=== PATIENT | male | born 2005 | race Hispanic/Latino ===

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

== ENCOUNTER 2025-03-16 19:18 | Emergency (ER) | payer OTHER ==
[2025-03-16 19:46] LABS: Absolute Lymphocytes (CBC) 3.2 K/uL (0.7-4.9); Hematocrit 43.3 % (39.6-49.0); Hemoglobin 14.8 g/dL (13.6-17.9); MCH 30.1 pg (27.0-35.0); MCHC 34.2 g/dL (32.0-36.0); MCV 88.0 fL (80-100); MPV 8.2 fL (7.6-11.3); Nucleated RBC Absolute Count 0.0 (0-0); Nucleated Red Blood Cells % 0.0 % (0-0); RBC Red Blood Cell Count 4.92 M/uL (4.33-5.43); White Blood Count 9.70 thou/uL (4.3-10.9)
[2025-03-16 20:04] LABS: ALT/SGPT 98.0 U/L (16-61); AST/SGOT 34.0 U/L (15-37); Albumin 4.2 g/dL (3.4-5.0); Albumin/Globulin Ratio 1.1 (1.1-1.8); Alkaline Phosphatase 68.0 U/L (45-117); Anion Gap 8.6 mEq/L (5.0-15.0); BUN Blood Urea Nitrogen 16.0 mg/dL (7-18); Bilirubin Indirect, Calculated 0.7 mg/dL (0.2-0.8); Globulin 4.0 g/dL (2.3-3.5); Glucose Level 94.0 mg/dL (74-106); Magnesium 2.2 mg/dL (1.6-2.4); Potassium 3.6 mEq/L (3.5-5.1); Troponin High Sensitivity 36.6 pg/mL (<58.9)
--- NOTE | 2025-03-16 20:06 | RAD REPORT ---
EXAM: Chest Single View HISTORY: 19 years Male CHEST PAIN COMPARISON: 08/27/23 FINDINGS: LUNGS/PLEURA: The lungs are clear. No pleural effusions or pneumothorax. No pulmonary edema. CARDIAC/MEDIASTINUM: Stable enlargement. UPPER ABDOMEN: No significant abnormality. BONES: No acute abnormality. LINES/TUBES/OTHER: N/A IMPRESSION: No evidence of acute cardiopulmonary disease.
--- NOTE | 2025-03-16 20:11 | ER ---
Nurse's Notes [facility] Name: Yuan Lopez Age: 19 yrs Sex: Male : 2005 Arrival Date: 03/16/2025 Time: 19:18 Bed 20 Private MD: Diagnosis: Chest pain Presentation: 03/16 19:23 Chief complaint: Patient states: for about two weeks I have been having chest pain in bm8 the morning and then it goes away today it has come and gone come and gone. currently I have no pain. 19:23 Coronavirus screen: At this time, the client does not indicate any symptoms associated bm8 with coronavirus-19. Ebola Screen: Patient negative for fever greater than or equal to 101.5 degrees Fahrenheit, and additional compatible Ebola Virus Disease symptoms Patient denies exposure to infectious person. Patient denies travel to an Ebola-affected area in the 21 days before illness onset. No symptoms or risks identified at this time. Initial Sepsis Screen: Does the patient meet any 2 criteria? No. Patient's initial sepsis screen is negative. Does the patient have a suspected source of infection? No. Patient's initial sepsis screen is negative. Risk Assessment: Do you want to hurt yourself or someone else?. Onset of symptoms was March 02, 2025 at 08:00. 19:23 Method Of Arrival: EMS: [facility] bm8 19:23 Acuity: VENKAT 2 bm8 Triage Assessment: 19:23 General: Appears in no apparent distress. comfortable, Behavior is calm, cooperative, bm8 appropriate for age. Pain: Denies pain. EENT: No deficits noted. No signs and/or symptoms were reported regarding the EENT system. Neuro: No deficits noted. Level of Consciousness is awake, alert, obeys commands, Oriented to person, place, time, situation, Appropriate for age [employer] Front Desk Attendant are equal bilaterally. Cardiovascular: Reports chest pain that comes and goes for two weeks worse in the morning described as pressure when present. pt denies chest pain currently Denies chest pain, Heart tones S1 S2 present Capillary refill < 3 seconds in bilateral fingers Patient's skin is warm and dry. 19:23 Respiratory: Airway is patent Respiratory effort is even, unlabored, Respiratory bm8 pattern is regular, symmetrical, Breath sounds are clear bilaterally. GI: No signs and/or symptoms were reported involving the gastrointestinal system. : No signs and/or symptoms were reported regarding the genitourinary system. Derm: No signs and/or symptoms reported regarding the dermatologic system. Musculoskeletal: No signs and/or symptoms reported regarding the musculoskeletal system. Historical: - Allergies: 19:32 PENICILLINS; bm8 - Home Meds: 19:32 None [Active]; bm8 - PMHx: 19:32 fatty liver; seasonal allergies; bm8 - PSHx: 19:32 Tonsillectomy; bm8 - Immunization history:: Adult Immunizations up to date. - Infectious Disease History:: Denies. - Social history:: Smoking status: Patient reports the use of cigarette tobacco products, denies chronic smoking, but will smoke occasionally, Patient/guardian denies using alcohol, street drugs. Screenin:36 [facility] ED Fall Risk Assessment (Adult) History of falling in the last 3 months, bm8 including since admission No falls in past 3 months (0 pts) Confusion or Disorientation No (0 pts) Intoxicated or Sedated No (0 pts) Impaired Gait No (0 pts) Mobility Assist Device Used No (0 pt) Altered Elimination No (0 pt) Score/Fall Risk Level 0 - 2 = Low Risk Oriented to surroundings, Maintained a safe environment, Educated pt \T\ family on fall prevention, incl call for assistance when getting out of bed, Assessed \T\ reinforced patient's understanding of fall precautions, Hourly rounding (assess needs \T\ fall precautionary measures) done, Used ambulatory aids as needed (educated on \T\ assisted with), Used gait belt as appropriate. Abuse screen: Denies threats or abuse. Nutritional screening: No deficits noted. Tuberculosis screening: No symptoms or risk factors identified. Assessment: 20:17 Reassessment: Patient appears in no apparent distress at this time. No changes from bm8 previously documented assessment. Patient and/or family updated on plan of care and expected duration. Pain level reassessed. Patient is alert, oriented x 3, equal unlabored respirations, skin warm/dry/pink. Patient denies pain at this time. Vital Signs: 19:23 BP 135 / 56; Pulse 86; Resp 17; Temp 97.8; Pulse Ox 100% ; Weight 164.2 kg; Height 5 bm8 ft. 11 in. ; Pain 0/10; 20:17 BP 132 / 65; Pulse 75; Resp 17; Temp 97.8; Pulse Ox 100% ; Pain 0/10; bm8 19:23 Body Mass Index 50.49 (164.20 kg, 180.34 cm) bm8 19:23 Pain Scale: Adult bm8 20:17 Pain Scale: Adult bm8 Meridian Coma Score: 19:36 Eye Response: spontaneous(4). Motor Response: obeys commands(6). Verbal Response: bm8 oriented(5). Total: 15. 20:17 Eye Response: spontaneous(4). Motor Response: obeys commands(6). Verbal Response: bm8 oriented(5). Total: 15. ED Course: 19:23 Patient arrived in ED. kmf 19:23 Arm band placed on right wrist. bm8 19:26 Yeimy Burgess MD is Attending Physician. sp3 19:30 Anselmo Mooney, RN is Primary Nurse. bm8 19:32 Triage completed. bm8 19:36 Patient has correct armband on for positive identification. Bed in low position. Call bm8 light in reach. Side rails up X2. Adult w/ patient. Client placed on continuous cardiac and pulse oximetry monitoring. NIBP monitoring applied. air sampling and monitoring on. Pulse ox on. NIBP on. Door closed. Noise minimized. Warm blanket given. Pillow given. Verbal reassurance given. Head of bed elevated. 19:36 No provider procedures requiring assistance completed. Initial lab(s) drawn, by ED bm8 staff, sent to lab. EKG done, by ED staff. Inserted saline lock: 20 gauge in right antecubital area, using aseptic technique. Blood collected. Flushed with 10 mL NS. Patient maintains SpO2 saturation greater than 95% on room air. Response to oxygen therapy: symptoms improved. 19:48 XRAY Chest (1 view) Sent. bm8 19:53 XRAY Chest (1 view) In Process Unspecified. EDMS 20:10 Fernie Fierro MD is Referral Physician. sp3 20:17 Provided Education on: post er care, stop smoking, exercise to lose weight. bm8 20:17 IV discontinued, intact, bleeding controlled, No redness/swelling at site. Pressure bm8 dressing applied. Administered Medications: No medications were administered Medication: 19:36 VIS not applicable for this client. bm8 Outcome: 20:11 Discharge ordered by . sp3 20:17 Discharged to home ambulatory, with family, bm8 20:17 Condition: stable 20:17 Discharge instructions given to patient, family, Instructed on discharge instructions, follow up and referral plans. no drinking with medication, no driving heavy equipment, medication usage, benefits of quitting smoking, safety practices, Demonstrated understanding of instructions, follow-up care, medications, 20:23 Patient left the ED. bm8 Signatures: Dispatcher [employer] EDYeimy Knight MD MD sp3 Sarai Guadalupe formerly [facility] Anselmo Mooney, RN RN bm8
--- NOTE | 2025-03-16 20:12 | EDPHYS ---
Physician Documentation [facility] Name: Yuan Lopez Age: 19 yrs Sex: Male : 2005 Arrival Date: 03/16/2025 Time: 19:18 Bed 20 Private MD: ED Physician Yeimy Burgess HPI: 03/16 19:31 This 19 yrs old Male presents to ER via Unassigned with complaints of chest sp3 pain. 19:31 19-year-old male with no significant past medical history, obesity, who now presents to [facility] the ED with chief complaint chest pain that has been occurring every morning for the last 2 weeks subsides as a day progresses however over the last 48 hours it has lasted significantly longer. [facility] where they performed an EKG and activated EMS to bring him here. EMS reports early J-point repolarization on their EKG. Patient is no longer in any chest pain. No other workup was done at the urgent care. Patient denies any headache, neck pain, shortness of breath, back pain, abdominal pain, nausea, vomiting, diarrhea, "heartburn", near-syncope, syncope, known sick contacts, travel history, prolonged immobilization, or any other signs or symptoms on ROS at this time.. Historical: - Allergies: 19:32 PENICILLINS; bm8 - Home Meds: 19:32 None [Active]; bm8 - PMHx: 19:32 fatty liver; seasonal allergies; bm8 - PSHx: 19:32 Tonsillectomy; bm8 - Immunization history:: Adult Immunizations up to date. - Infectious Disease History:: Denies. - Social history:: Smoking status: Patient reports the use of cigarette tobacco products, denies chronic smoking, but will smoke occasionally, Patient/guardian denies using alcohol, street drugs. ROS: 19:34 Constitutional: Negative for fever, chills, and weight loss, Eyes: Negative for injury, sp3 pain, redness, and discharge, Neck: Negative for injury, pain, and swelling, Respiratory: Negative for shortness of breath, cough, wheezing, and pleuritic chest pain, Abdomen/GI: Negative for abdominal pain, nausea, vomiting, diarrhea, and constipation, Back: Negative for injury and pain, MS/Extremity: Negative for injury and deformity, Skin: Negative for injury, rash, and discoloration, Neuro: Negative for headache, weakness, numbness, tingling, and seizure, Psych: Negative for depression, anxiety, suicide ideation, homicidal ideation, and hallucinations, Allergy/Immunology: Negative for hives, rash, and allergies, Endocrine: Negative for neck swelling, polydipsia, polyuria, polyphagia, and marked weight changes, Hematologic/Lymphatic: Negative for swollen nodes, abnormal bleeding, and unusual bruising, 19:34 All other systems are negative, Exam: 19:35 Constitutional: This is a well developed, well nourished patient who is awake, alert, sp3 and in no acute distress. Head/Face: Normocephalic, atraumatic. Eyes: Pupils equal round and reactive to light, extra-ocular motions intact. Lids and lashes normal. Conjunctiva and sclera are non-icteric and not injected. Cornea within normal limits. Periorbital areas with no swelling, redness, or edema. Neck: Trachea midline, no thyromegaly or masses palpated, and no cervical lymphadenopathy. Supple, full range of motion without nuchal rigidity, or vertebral point tenderness. No Meningismus. Chest/axilla: Normal chest wall appearance and motion. Nontender with no deformity. No lesions are appreciated. Cardiovascular: Regular rate and rhythm with a normal S1 and S2. No gallops, murmurs, or rubs. Normal PMI, no JVD. No pulse deficits. Respiratory: Lungs have equal breath sounds bilaterally, clear to auscultation and percussion. No rales, rhonchi or wheezes noted. No increased work of breathing, no retractions or nasal flaring. Abdomen/GI: Soft, non-tender, with normal bowel sounds. No distension or tympany. No guarding or rebound. No evidence of tenderness throughout. Back: No spinal tenderness. No costovertebral tenderness. Full range of motion. Skin: Warm, dry with normal turgor. Normal color with no rashes, no lesions, and no evidence of cellulitis. MS/ Extremity: Pulses equal, no cyanosis. Neurovascular intact. Full, normal range of motion. Neuro: Awake and alert, GCS 15, oriented to person, place, time, and situation. Cranial nerves II-XII grossly intact. Motor strength 5/5 in all extremities. Sensory grossly intact. Cerebellar exam normal. Normal gait. Psych: Awake, alert, with orientation to person, place and time. Behavior, mood, and affect are within normal limits. 20:09 ECG was reviewed by the Attending Physician. EKG demonstrates normal sinus rhythm at 78 sp3 bpm with normal intervals, normal QRS, normal axis and early J-point elevation consistent with repolarization. No signs of acute ischemia noted. Vital Signs: 19:23 BP 135 / 56; Pulse 86; Resp 17; Temp 97.8; Pulse Ox 100% ; Weight 164.2 kg; Height 5 bm8 ft. 11 in. ; Pain 0/10; 20:17 BP 132 / 65; Pulse 75; Resp 17; Temp 97.8; Pulse Ox 100% ; Pain 0/10; bm8 19:23 Body Mass Index 50.49 (164.20 kg, 180.34 cm) bm8 19:23 Pain Scale: Adult bm8 20:17 Pain Scale: Adult bm8 Cameron Coma Score: 19:36 Eye Response: spontaneous(4). Motor Response: obeys commands(6). Verbal Response: bm8 oriented(5). Total: 15. 20:17 Eye Response: spontaneous(4). Motor Response: obeys commands(6). Verbal Response: bm8 oriented(5). Total: 15. MDM: 19:26 Medical Screening Exam initiated sp3 19:36 Data reviewed: vital signs, nurses notes, EMS record, lab test result(s), EKG, sp3 radiologic studies. ED course: 19-year-old male with no significant past medical history now with chest pain off-and-on. Differential diagnosis includes musculoskeletal, esophageal reflux, gastritis, to a lesser degree ACS, bronchitis, pleurisy, PE, among others. Workup will include chest x-ray, EKG, general labs including D-dimer and troponin. If workup negative we will follow-up with GI for further workup.. 20:09 ED course: Full workup negative including EKG, chest x-ray, all labs, troponin and sp3 D-dimer. Patient is stable and pain-free at the moment. We will discharge him with follow-up with GI for further workup on possible reflux.. 03/16 19: Order name: Basic Metabolic Panel; Complete Time: 20:06 sp3 03/16 19: Order name: CBC with Diff; Complete Time: 20:06 sp3 03/16 19:27 Order name: LFT's; Complete Time: 20:06 sp3 03/16 19:27 Order name: Magnesium; Complete Time: 20:06 sp3 03/16 19:27 Order name: Troponin HS; Complete Time: 20:06 sp3 03/16 19:27 Order name: D-Dimer; Complete Time: 20:06 sp3 03/16 19:27 Order name: XRAY Chest (1 view); Complete Time: 20:07 sp3 03/16 19:27 Order name: EKG; Complete Time: 19:27 sp3 03/16 19:27 Order name: Cardiac monitoring; Complete Time: 19:48 sp3 03/16 19:27 Order name: EKG - Nurse/Tech; Complete Time: 19:48 sp3 03/16 19:27 Order name: IV Saline Lock; Complete Time: 19:48 sp3 03/16 19:27 Order name: Labs collected and sent; Complete Time: 19:48 sp3 03/16 19:27 Order name: O2 Per Protocol; Complete Time: 19:48 sp3 03/16 19:27 Order name: O2 Sat Monitoring; Complete Time: 19:48 sp3 Administered Medications: No medications were administered Disposition Summary: 03/16/25 20:11 Discharge Ordered Notes: Location: Home sp3 Condition: Stable sp3 Diagnosis - Chest pain sp3 Followup: sp3 - With: Fernie Firero MD - When: Upon discharge from the Emergency Department - Reason: Continuance of care Discharge Instructions: - Discharge Summary Sheet sp3 - Nonspecific Chest Pain, Adult sp3 Forms: - Medication Reconciliation Form sp3 - Antibiotic Education sp3 - Prescription Opioid Use sp3 - Patient Portal Instructions sp3 - Leadership Thank You Letter sp3 Signatures: Dispatcher [employer] Yeimy Chavis MD MD sp3 Anselmo Mooney, RN RN bm8
[2025-03-17 04:31] VITALS: TEMP 97.8; O2SAT 100
[2025-03-17 04:32] VITALS: BP 132/65
== END 2025-03-16 20:23 | disposition home or self-care (01) ==
LOC: ER 19:18
DX: R07.9 Chest pain, unspecified (principal); E66.9 Obesity, unspecified; Z88.0 Allergy status to penicillin; K76.0 Fatty (change of) liver, not elsewhere classified; F17.210 Nicotine dependence, cigarettes, uncomplicated
CPT/HCPCS: 36415; 71045; 80048; 80076; 83735; 84484; 85025; 85379; 93005; 99285